=== PATIENT | female | born 1970 | race Caucasian/White ===

== ENCOUNTER 2023-04-08 14:02 | Day surgery (SDC) | payer OTHER, SELFPAY ==
--- NOTE | 2023-04-08 | PATH_ITS ---
[facility] Accession Number: [id number] No. of containers..02 Tissue . 01 Material submitted: . PART A: duodenum - DUODENUM PART B: gastrointestinal site - ANTRUM . 01 Diagnosis: A. Duodenum, Biopsy: Duodenal mucosa with no diagnostic abnormality. Negative for active inflammation, features of sprue, dysplasia, or malignancy. . B. Gastric Antrum, Biopsy: Gastric antral mucosa with mild chronic inflammation. Negative for Helicobacter organisms by immunohistochemistry. Negative for intestinal metaplasia. Negative for dysplasia or malignancy. [facility] 04/15/2023 1404 Local . 01 Electronically signed: . Osvaldo Velazquez MD, PhD, Pathologist NPI- [id number] . 01 Gross description: . Part A: DUODENUM: Received in formalin is 1 fragment(s) of vora, soft tissue measuring 0.3 x 0.3 x 0.2 cm submitted entirely in 1 cassette(s) Part B: ANTRUM: Received in formalin are 3 fragment(s) of vora, soft tissue measuring 0.1 x 0.1 x 0.1 cm to 0.3 x 0.3 x 0.2 cm submitted entirely in 1 cassette(s) /[facility] 04/12/2023 1940 Local . 01 Microscopic: . B. An immunohistochemical stain was performed to evaluate for Helicobacter organisms and is negative. The control stain showed appropriate reactivity. . * This test was developed and its performance characteristics determined by [employer]. It has not been cleared or approved by the U.[place]. Food and Drug Administration. The FDA has determined that such clearance or approval is not necessary. This test is used for clinical purposes. It should not be regarded as investigational or for research. . 01 Pathologist provided ICD-10: K29.70 . 01 CPT . 891287, 902324, T25644 Specimen Comment: A courtesy copy of this report has been sent to [phone] Performed at: 01 [facility] [address] [place] [address] [id number] MD Wing Wing MD Phone: [phone]
[2023-04-08 14:55] VITALS: BP 167/109; PULSE 99; RESP 17; TEMP 37.1; O2SAT 100; BMI 31.3
[2023-04-08] MEDS: LACTATED RINGERS 1,000 ML 100 ML IV (15:06)
--- NOTE | 2023-04-08 15:59 | P.HP_ITS ---
History of Present Illness History of Present Illness Date Patient Seen: 04/08/23 Time Patient Seen: 16:00 Chief complaint: EGD w/poss bx Narrative: Lizy is a 53-year-old woman with postprandial abdominal pain. See the office note from February for details. She had a recent CT scan that was unrevealing. [facility] Medical History (Updated 04/08/23 @ 14:42 by Tee Harrell RN) Anxiety Atrial fibrillation Depression Diabetes Diabetes type 2, controlled Fibromyalgia Gall bladder disease Hypertension Insomnia Kidney stones Low back pain Migraine Pneumonia Surgical History Hx of appendectomy Hx of breast reduction, elective Hx of section Hx of cholecystectomy Family History (Updated 03/04/23 @ 09:43 by Dayne Ashby RN) Grandmother Hypertension Mother Cancer Father Cancer Grandfather Stroke Social History household members: spouse Smoking Status: Never smoker alcohol intake: never Meds Home Medications and Allergies Home Medications Medication Instructions Recorded Confirmed Type apixaban 2.5 mg tablet (Eliquis) 2.5 mg PO ONCE 03/03/23 04/08/23 History atorvastatin 40 mg tablet 40 mg PO DAILY 03/03/23 04/08/23 History cyclobenzaprine 10 mg tablet 10 mg PO ONCE PRN Pain (Scale 03/03/23 04/08/23 History Score 1-3) duloxetine 60 mg capsule,delayed 60 mg PO DAILY 03/03/23 04/08/23 History release gabapentin 600 mg tablet 600 mg PO TID 03/03/23 04/08/23 History lisinopril 5 mg tablet 5 mg PO DAILY 03/03/23 04/08/23 History metformin 500 mg tablet 500 mg PO BID 03/03/23 04/08/23 History metoprolol succinate 50 mg 50 mg PO DAILY 03/03/23 04/08/23 History tablet,extended release 24 hr ondansetron 4 mg disintegrating 4 mg PO Q8H PRN Nausea 03/03/23 04/08/23 History tablet rizatriptan 10 mg tablet 10 mg PO ONCE PRN Headache 03/03/23 04/08/23 History tramadol 50 mg tablet 50 mg PO BID PRN Pain (Scale Score 03/03/23 04/08/23 History 1-3) zolpidem 10 mg tablet 10 mg PO BEDTIME 03/03/23 04/08/23 History clonazepam 0.5 mg tablet 0.5 mg PO DAILY PRN Anxiety 04/08/23 04/08/23 History Allergies Allergy/AdvReac Type Severity Reaction Status Date / Time adhesive tape AdvReac Rash Verified 04/08/23 14:43 From AUGMENTIN Allergy Mild SKIN RASH Uncoded 03/03/23 14:10 INGREDIENT: NKDA - NO KNOWN Allergy Unknown Uncoded 03/03/23 14:10 DRUG ALLERGIES Exam Vital Signs (past 8 hours): - 04/08/23 14:55 Temperature 98.7 F Pulse Rate 99 H Respiratory Rate 17 Blood Pressure 167/109 H Pulse Oximetry 100 Oxygen Delivery Method Room Air Oxygen Delivery Method Room Air Const General: No acute distress Assessment & Plan Assessment and plan (1) Abdominal pain: Qualifiers: Abdominal location: right upper quadrant Qualified Code(s): R10.11 - Right upper quadrant pain Status: Acute Plan We reviewed the risks and benefits of EGD and she would like to proceed
--- NOTE | 2023-04-08 17:25 | PM.OP.EGD ---
Operative Date/Time/Diagnoses Date of procedure: 04/08/23 Time of procedure: 17:25 Pre-op diagnosis: Abdominal pain Post-op diagnosis: same Procedure & Clinicians Study performed: Esophagogastroduodenoscopy Same procedure as scheduled: Yes Surgeon: Herb Chávez Procedure Notes Procedure in detail: Surgeon: Herb Chávez MD Anesthesia: Brennan Rangel timeout was performed. A bite blocked was placed. The patient was positioned in the left lateral decubitus position. Anesthesia was administered. The endoscope was inserted through the bite block and passed through the esophagus and stomach and into the duodenum. The duodenal mucosa appeared normal. Random biopsies were taken from duodenum. The scope was withdrawn into the duodenal bulb and no abnormalities were seen. The scope was withdrawn into the stomach. Random biopsies were taken from the antrum. The rest of the stomach was normal. The scope was retroflexed and no hiatal hernia was seen. The scope was withdrawn into the esophagus and no abnormalities were seen. The remainder of the esophagus was normal. The scope was withdrawn. The patient was awakened and brought to recovery. Sedation time: 4 minutes Findings: Grossly normal esophagus, stomach and duodenum Post-procedure Disposition: PACU
[2023-04-08 17:28] VITALS: BP 128/83; PULSE 91; RESP 17; TEMP 36.8; O2SAT 100
[2023-04-08 17:33] VITALS: BP 120/84; PULSE 89; RESP 15; O2SAT 100
[2023-04-08 17:39] VITALS: BP 141/89; PULSE 87; RESP 15; O2SAT 95
== END 2023-04-08 18:02 | disposition home or self-care (01) ==
PROVIDERS: PCP Nurse Practitioner Family; Referring Provider Surgery; Visit Provider Surgery
PROC: 0DJ08ZZ Inspection of Upper Intestinal Tract, Via Natural or Artificial Opening Endoscopic (ICD-10-PCS; CPT 43235; principal; 2023-04-08 15:15)
DX: R10.9 Unspecified abdominal pain (principal)
CPT/HCPCS: 43235; J2704